=== PATIENT | male | born 1950 | race Caucasian/White ===

== ENCOUNTER 2016-05-31 04:19 | Emergency (ER) | payer OTHER, MEDICAID ==
[2016-05-31 04:27] VITALS: BP 126/77; PULSE 71; RESP 16; TEMP 97.5; O2SAT 99
[2016-05-31] MEDS ORDERED: TDAP ADULT 0.5 ML INJ (BOOSTRIX) IM ONE (04:47)
[2016-05-31] MEDS ORDERED: IBUPROFEN 600 MG TAB PO ONE (05:11)
[2016-05-31] MEDS ORDERED: ACETAMINOPHEN 500 MG TAB PO ONE (05:11)
--- NOTE | 2016-05-31 05:13 | EDPHY ---
H & P Stated Complaint: fall (mech?), no LOC, denies neck pain Time Seen by Provider: 05/31/16 04:35 HPI/ROS: HPI The patient presents with a fall which occurred just prior to arrival. He got up in the middle of the night to go to the bathroom in his back was hurting him , he was walking with a limping gait because of pain, he fell backwards landing on his head and sustained a laceration to his scalp. He did not lose consciousness. He was awake and alert. There was no witnessed seizure activity. He periodically has episodes of low back pain for which he takes ibuprofen. This episode feels identical. He does not have a headache, vomiting , mental status changes. He is here with his caregiver. REVIEW OF SYSTEMS Constitutional: No fever, no chills. Eyes: No discharge. ENT: No sore throat. Cardiovascular: No chest pain, no palpitations. Respiratory: No cough, no shortness of breath. Gastrointestinal: No abdominal pain, no vomiting. Genitourinary: No hematuria. Musculoskeletal: No back pain. Skin: No rashes. Neurological: No headache. PMHx: Developmental delay, seizure disorder, low back pain PHYSICAL General Appearance: Alert, no distress Eyes: Pupils equal and round no pallor or injection ENT, Mouth: Mucous membranes moist Head: 6 cm posterior scalp laceration without active bleeding Respiratory: There are no retractions, lungs are clear to auscultation Cardiovascular: Regular rate and rhythm Gastrointestinal: Abdomen is soft and non-tender, no masses, bowel sounds normal Neurological: A&O, moves all extremities Skin: Warm and dry, no rashes Musculoskeletal: Neck is supple non tender Extremities: symmetrical, full range of motion Psychiatric: Patient is oriented X 3, there is no agitation Source: Patient Exam Limitations: Physical impairment - Personal History Current Tetanus/Diphtheria Vaccine: Yes Current Tetanus Diphtheria and Acellular Pertussis (TDAP): Yes Tetanus Vaccine Date: 10/22/10 - Medical/Surgical History Hx Asthma: No Hx Chronic Respiratory Disease: No Hx Diabetes: No Hx Cardiac Disease: No Hx Renal Disease: No Hx Cirrhosis: No Hx Alcoholism: No Hx HIV/AIDS: No Hx Splenectomy or Spleen Trauma: No Other PMH: developmental delay, seizure disorder, HTN, osteopenia - Social History Smoking Status: Never smoked Constitutional: Initial Vital Signs Temperature (C) 36.4 C 05/31/16 04:21 Heart Rate 71 05/31/16 04:21 Respiratory Rate 16 05/31/16 04:21 Blood Pressure 126/77 H 05/31/16 04:21 O2 Sat (%) 99 05/31/16 04:21 O2 Delivery Mode Room Air Allergies/Adverse Reactions: venom-honey bee [bee venom (honey bee)] Allergy (Intermediate, Verified 18:40) Home Medications: Medication Instructions Recorded CHOLECALCIFEROL [Vitamin D] 400 unit PO DAILY 03/21/11 Divalproex ER [Depakote ER] 250 mg PO DAILY 03/21/11 Divalproex [Depakote] 500 mg PO BID 03/21/11 Docusate Sodium [Colace] 200 mg PO BID 03/21/11 Levothyroxine [Synthroid] 75 mcg PO DAILY@1000 03/21/11 Lisinopril 20 mg PO DAILY 03/21/11 Calcium Carbonate/Vitamin D3 1 each PO BID 04/05/12 [Os-Mumtaz 500+D Caplet] Psyllium Seed [Metamucil] 3 tsp PO DAILY 04/05/12 Vitamin B Complex [Vitamin B 1 each PO DAILY 04/05/12 Complex (OTC)] Medical Decision Making Procedures: LACERATION REPAIR Procedure: Laceration repair. Verbal consent was obtained from the patient. The linear 6 cm laceration on the posterior occipital scalp was anesthetized using lidocaine with epinephrine. The wound was scrubbed, draped and explored to its base with a gloved finger. There were no deep structures involved. . The wound was repaired with naima. The wound repair was simple. The procedure was performed by myself. Differential Diagnosis: This is a 65-year-old man with developmental delay and low back pain who presents with a fall which occurred tonight. He was having an episode of lower back pain and was guarding his lower back and slipped and fell it seems. He did not lose consciousness. He did not have any seizure-like activity. He now feels well. His last tetanus shot was in 2010. In the emergency room, patient was given a local injection of lidocaine with epinephrine. His wound was irrigated and then closed with naima. We discussed wound care. He will be discharged with his caregiver. - Data Points Medications Given: Discontinued Medications Acetaminophen (Tylenol) 1,000 mg PO EDNOW ONE Stop: 05/31/16 05:12 Last Admin: 05/31/16 05:17 Dose: 1,000 mg Diphtheria/Tetanus/Acell Pertussis (Boostrix) 0.5 ml IM .ONCE ONE Stop: 05/31/16 04:48 Last Admin: 05/31/16 05:17 Dose: Not Given Ibuprofen (Motrin) 600 mg PO EDNOW ONE Stop: 05/31/16 05:12 Last Admin: 05/31/16 05:17 Dose: 600 mg Departure - Departure Disposition: Home, Routine, Self-Care Clinical Impression: Scalp laceration Qualifiers: Encounter type: initial encounter Qualified Code(s): S01.01XA - Laceration without foreign body of scalp, initial encounter Fall Qualifiers: Encounter type: initial encounter Qualified Code(s): W19.XXXA - Unspecified fall, initial encounter Condition: Good Instructions: Staple Care (ED) Additional Instructions: Your naima can be removed in 10 days. You can return to the emergency room for this or your primary care doctor can take them out. For your back pain, you can take ibuprofen 600 mg with acetaminophen 1 g every 6 hours as needed for pain. Please return to the emergency room if your worse in any way. Referrals: Teresa Quiroz MD [Primary Care Provider] - As per Instructions
== END 2016-05-31 05:20 | disposition home or self-care (01) ==
PROC: 0HQ0XZZ Repair Scalp Skin, External Approach (ICD-10-PCS; principal; 2016-05-31)
DX: S01.01XA Laceration without foreign body of scalp, initial encounter (principal); I10 Essential (primary) hypertension; W18.39XA Other fall on same level, initial encounter; Y93.01 Activity, walking, marching and hiking

== ENCOUNTER 2016-06-11 19:21 | Inpatient (IN) | payer OTHER, MEDICAID ==
[2016-06-11] MEDS ORDERED: NS 1,000 ML IV ONE (19:40)
[2016-06-11] MEDS ORDERED: ACETAMINOPHEN 325 MG TAB PO ONE (19:43)
--- NOTE | 2016-06-11 19:44 | EDPHY ---
H & P Time Seen by Provider: 06/11/16 19:32 HPI/ROS: CHIEF COMPLAINT: Fever, malaise Limitations: Patient nonverbal and the patient's caregiver is not available. History is via the paramedics. HISTORY OF PRESENT ILLNESS: 65-year-old male with a history of developmental delay presents with fever and malaise. Unclear onset of symptoms. He has had a cough, URI symptoms and fever. He is not as interactive as normal, though I do not know his baseline status. He has a 24 hour a day caregiver. REVIEW OF SYSTEMS: Unable to determine Past Medical/Surgical History: Developmental delay Seizure disorder Low back pain Social History: Lives in own home Smoking Status: Never smoked Physical Exam: General Appearance: Alert, nonverbal, follows commands Eyes: Pupils equal and round, no conjunctival pallor or injection ENT, Mouth: Mucous membranes moist Neck: Normal inspection Respiratory: Lungs are clear to auscultation Cardiovascular: Regular rate and rhythm Gastrointestinal: Abdomen is soft, no apparent tenderness Neurological: Alert, follows commands, nonfocal exam Skin: Warm and dry, no rash Extremities: no pedal edema Psychiatric: Unable to determine Constitutional: Initial Vital Signs Temperature (C) 37.5 C 06/11/16 19:34 Heart Rate 98 06/11/16 19:34 Respiratory Rate 14 06/11/16 19:34 Blood Pressure 118/72 06/11/16 19:34 O2 Sat (%) 92 06/11/16 19:34 O2 Delivery Mode Room Air O2 (L/minute) 1.5 Allergies/Adverse Reactions: venom-honey bee [bee venom (honey bee)] Allergy (Intermediate, Verified 18:40) Penicillins Allergy (Verified 06/11/16 19:52) Home Medications: Medication Instructions Recorded Alendronate Sodium [Fosamax 70 MG 70 mg PO Q7D 06/11/16 (*)] Divalproex ER [Depakote ER 250 MG 250 mg PO DAILY 06/11/16 (*)] Divalproex [Depakote] 500 mg PO BID 06/11/16 Docusate Sodium [Colace 100 MG (*)] 200 mg PO BID 06/11/16 Herbals/Supplements -Info Only 1 ea PO DAILY 06/11/16 Levothyroxine [Synthroid 75 mcg 75 mcg PO DAILY 04/21/17 (*)] Lisinopril [Zestril 20 mg (*)] 20 mg PO DAILY 06/11/16 Psyllium Husk [Metamucil] 1 tbs PO DAILY 06/11/16 Vitamin B Complex [B Complex] 1 each PO DAILY 06/11/16 levOFLOXACIN [levAQUIN (*)] 750 mg PO DAILY AT 10AM #2 tab 06/12/16 Medical Decision Making - Diagnostics Imaging Results: Imaging Impressions Head CT 06/12/16 08:00 Impression: Diffuse atrophy with no definite acute intracranial hemorrhage identified on this study that is somewhat compromised by patient motion artifact. ED Course/Re-evaluation: This patient presents with fever and URI symptoms. He does not meet SIRS criteria. However the lactate is elevated at 2.9. IV normal saline 1 L given. A repeat lactate was ordered and is 2.4. Chest x-ray reveals a left lower lobe infiltrate. Blood cultures were drawn and Levaquin 750 mg IV given. Seems more interactive after the IV fluids were given. However he is still nonverbal and his caregiver is still not available. At this point, I will admit him for observation for pneumonia. The hospitalist service was consulted for admission. Differential Diagnosis: Differential diagnosis includes pyelonephritis, cholecystitis, influenza, cellulitis, pneumonia, abscess, meningitis. - Data Points Laboratory Results: Laboratory Results 06/12/16 04:36 06/12/16 04:36 Medications Given: Discontinued Medications Acetaminophen (Tylenol) 650 mg PO EDNOW ONE Stop: 06/11/16 19:44 Last Admin: 06/11/16 20:00 Dose: 650 mg Sodium Chloride (Ns) 1,000 mls @ 0 mls/hr IV ONCE ONE PRN Reason: Wide Open Stop: 06/11/16 19:41 Last Admin: 06/11/16 19:50 Dose: 1,000 mls Levofloxacin/Dextrose (Levaquin 750 Mg (Premix)) 150 mls @ 100 mls/hr IV EDNOW ONE PRN Reason: Protocol Stop: 06/11/16 22:06 Last Admin: 06/11/16 20:46 Dose: 150 mls Sodium Chloride (Ns) 1,000 mls @ 100 mls/hr IV CONT EZEKIEL Stop: 12/08/16 21:44 Last Admin: 06/11/16 22:33 Dose: 1,000 mls Oxycodone HCl (Oxycodone Ir) 5 - 10 mg PO Q3HRS PRN PRN Reason: Pain, Severe Able to Take PO Stop: 06/21/16 21:33 Last Admin: 06/11/16 22:32 Dose: 5 mg Departure - Departure Disposition: [facility] In[facility] Acute Clinical Impression: Pneumonia Qualifiers: Pneumonia type: due to unspecified organism Laterality: left Lung location: lower lobe of lung Qualified Code(s): J18.1 - Lobar pneumonia, unspecified organism Condition: Good
[2016-06-11 19:49] LABS: % IMMATURE GRANULYOCYTES 0.4 % (0.0-1.1); ABSOLUTE IMMATURE GRANULOCYTES 0.04 10^3/uL (0.00-0.10); ADD DIFF? NO; ADD MORPH? NO; ADD SCAN? NO; ATYPICAL LYMPHOCYTE FLAG 0 (0-99); FRAGMENT RBC FLAG 0 (0-99); HEMATOCRIT 43.8 % (40.0-51.0); HEMOGLOBIN 14.5 g/dL (13.7-17.5); LEFT SHIFT FLG 10 (0-99); LIPEMIA HEMOLYSIS FLAG 80 (0-99); MEAN CELL HEMOGLOBIN 33.3 pg (27.9-34.1); MEAN CELL HEMOGLOBIN CONCENTR. 33.1 g/dL (32.4-36.7); MEAN CELL VOLUME 100.5 fL (81.5-99.8); MEAN PLATELET VOLUME 10.4 fL (8.7-11.7); PLATELET CLUMPS FLAG 0 (0-99); PLATELET COUNT 194 10^3/uL (150-400); RED BLOOD CELL COUNT 4.36 10^6/uL (4.40-6.38); RED CELL DISTRIBUTION WIDTH 13.3 % (11.5-15.2)
[2016-06-11 19:57] LABS: ANION GAP 8 mEq/L (8-16); CALCIUM 9.2 mg/dL (8.5-10.4); CARBON DIOXIDE 25 mEq/l (22-31); CHLORIDE 103 mEq/L (97-110); CREATININE 0.8 mg/dL (0.7-1.3); GLOMERULAR FILTRATION RATE > 60; GLUCOSE 97 mg/dL (70-100); POTASSIUM 4.3 mEq/L (3.5-5.2); SODIUM 136 mEq/L (134-144)
[2016-06-11] MEDS ORDERED: LORazepam 0.5 MG TAB PO PRN (21:34)
[2016-06-11] MEDS ORDERED: oxyCODONE IR 5 MG TAB PO PRN (21:34)
[2016-06-11] MEDS ORDERED: ONDANSETRON 4 MG/2 ML VIAL IVP PRN (21:34)
[2016-06-11] MEDS ORDERED: ONDANSETRON DISINTEGRATING 4 MG TAB PO PRN (21:34)
[2016-06-11] MEDS ORDERED: NS 1,000 ML IV SCH (21:45)
[2016-06-11] MEDS: DIVALPROEX NA 500 MG TAB PO SCH (22:32)
--- NOTE | 2016-06-11 23:06 | GHP ---
[f rep st] HISTORY AND PHYSICAL DATE OF ADMISSION: 06/11/2016 CHIEF COMPLAINT: Fever and malaise. HISTORY: This is a 65-year-old man with history of severe developmental delay, residing at [facility], who was brought in after being noted to have fever and to be seeming more somnolent recently than usual. Patient is nonverbal at baseline, and therefore this history is limited by that and ob tained largely through ER and caregiver report. Apparently, patient is generally able to follow com mands and is somewhat interactive, though very limited verbally to words like "yes" or "no". In the last couple of days, he has been noted to be more somnolent. There was a concern that several days ago he had a fall and hit his head and that some of these changes seem to follow that injury. He w as also febrile today with some concerns for cough, as well, and was brought to the ER for further e valuation. At the time of my evaluation, patient is alert and able to answer "no" when I ask if any thing hurts but otherwise is unable to provide any history. PAST MEDICAL HISTORY: 1. Severe developmental delay. 2. Seizure disorder. 3. Detached retina. 4. Scoliosis. 5. Hypothyroidism. FAMILY HISTORY: Father has had cancer of some sort. Mother with reactive airways disease. SOCIAL HISTORY: Patient resides at [facility] where he is significantly dependent in his ADLs. He is a nonsmoker, nondrinker, nondrug user. REVIEW OF SYSTEMS: This is unobtainable secondary to patient's cognitive disorder. MEDICATIONS: 1. Psyllium. 2. Depakote. 3. Docusate. 4. Fosamax. 5. Vitamin D. 6. Lisinopril. 7. Levothyroxine. ALLERGIES: Penicillin. PHYSICAL EXAMINATION: VITAL SIGNS: BP 109/61, heart rate 98, respiratory rate 18, O2 sats 94% on r oom air, temperature is 38.2. GENERAL APPEARANCE: Patient is awake and alert. He is in no acute d istress. EYES: Anicteric. HENT: Somewhat dry mucous membranes. Oropharynx is clear. CARDIOVASC ULAR: RRR, no MRG. PULMONARY: Normal work of breathing. Lungs are clear. There are left basilar rhonchi. ABDOMEN: Soft, nontender, nondistended. EXTREMITIES: No clubbing, cyanosis, or edema. SKIN: Warm, dry, well perfused. NEURO/PSYCH: Patient is alert. He follows commands and is able to answer questions at times but will only say "no" or "yes." He is moving all 4 extremities. CLINICAL DATA: Labs reviewed, significant for white blood cell count 9, lactic acid initially 2.9 a nd then 2.4. Chemistry remarkable only for a BUN of 27. Chest x-ray, personally reviewed and inter preted, shows evidence of left lower lobe pneumonia. ASSESSMENT AND PLAN: This is a 65-year-old man with a history of severe developmental delay, who pr esents with fever and malaise in the setting of left lower lobe pneumonia. 1. Pneumonia. Difficult to assess patient's symptoms, but it does sound as if he has had some coug h, as well as fever. Chest x-ray concerning for a new left lower lobe infiltrate. He has been star ronnie on Levaquin. Blood cultures have been sent and are pending. He is nontoxic appearing. He does not currently meet SIRS criteria. 2. Acute on chronic encephalopathy. It sounds as if patient has been more somnolent, less interact zev than is his usual baseline. A little bit difficult to assess given his severe developmental del ay. This in the setting of acute infectious process as above. Will monitor and look to patient's c aregiver for further information regarding his usual baseline. 3. History of developmental delay. Again, he is residing at [facility]. Seems to be slightly off his baseline as above. 4. History of seizure disorder. Will continue his Depakote. 5. History of hypothyroidism. Will continue his levothyroxine. 6. Disposition. Observation status. Suspect he will need less than 48-hour stay for evaluation an d management of above. Patient is new to my care. Old records reviewed and summarized as per HPI and past medical history. Care plan reviewed with ER physician, including plans for antibiotic therapy. /[id number]/MODL
[2016-06-11 23:46] LABS: COLOR YELLOW; LEUKOCYTE ESTERASE,URINE NEGATIVE (NEGATIVE); NITRITE,URINE NEGATIVE (NEGATIVE)
[2016-06-12 05:36] LABS: % IMMATURE GRANULYOCYTES 0.5 % (0.0-1.1); ABSOLUTE IMMATURE GRANULOCYTES 0.06 10^3/uL (0.00-0.10); ADD DIFF? NO; ADD MORPH? NO; ADD SCAN? NO; ATYPICAL LYMPHOCYTE FLAG 0 (0-99); FRAGMENT RBC FLAG 0 (0-99); HEMATOCRIT 39.2 % (40.0-51.0); HEMOGLOBIN 13.3 g/dL (13.7-17.5); LEFT SHIFT FLG 60 (0-99); LIPEMIA HEMOLYSIS FLAG 90 (0-99); MEAN CELL HEMOGLOBIN 33.8 pg (27.9-34.1); MEAN CELL HEMOGLOBIN CONCENTR. 33.9 g/dL (32.4-36.7); MEAN CELL VOLUME 99.7 fL (81.5-99.8); MEAN PLATELET VOLUME 10.2 fL (8.7-11.7); PLATELET CLUMPS FLAG 0 (0-99); PLATELET COUNT 154 10^3/uL (150-400); RED BLOOD CELL COUNT 3.93 10^6/uL (4.40-6.38); RED CELL DISTRIBUTION WIDTH 13.2 % (11.5-15.2)
[2016-06-12 05:58] LABS: ANION GAP 10 mEq/L (8-16); CALCIUM 8.6 mg/dL (8.5-10.4); CARBON DIOXIDE 23 mEq/l (22-31); CHLORIDE 106 mEq/L (97-110); CREATININE 0.6 mg/dL (0.7-1.3); GLOMERULAR FILTRATION RATE > 60; GLUCOSE 81 mg/dL (70-100); POTASSIUM 3.8 mEq/L (3.5-5.2); SODIUM 139 mEq/L (134-144)
[2016-06-12] MEDS: DOCUSATE SODIUM 100 MG CAP PO SCH ×2 (08:35→20:24)
[2016-06-12] MEDS: ACETAMINOPHEN 325 MG TAB PO PRN ×3 (08:36→20:25)
[2016-06-12] MEDS: LEVOTHYROXINE 75 MCG TAB PO SCH (08:36)
[2016-06-12] MEDS: DIVALPROEX ER 250 MG TAB PO SCH (08:52)
[2016-06-12] MEDS: LISINOPRIL 20 MG TAB PO SCH (08:52)
[2016-06-12] MEDS: VITAMIN B COMPLEX 1 EA CAP/TAB PO SCH (08:52)
[2016-06-12] MEDS: DIVALPROEX NA 500 MG TAB PO SCH ×2 (08:52→20:25)
[2016-06-12] MEDS: PSYLLIUM METAMUCIL 1 PKT PO SCH (08:53)
[2016-06-12] MEDS: ENOXAPARIN 40 MG/0.4 ML SYR SC SCH (11:31)
--- NOTE | 2016-06-12 12:29 | HOSPPROG ---
Hospitalist Progress Note Assessment/Plan: #Acute encephalopathy:multifactorial with infection and was dosed oxycodone last night. Mental status improved per his caregiver. Had recent fall, thus will check CTH. Stop narcotics. #Sepsis: due to PNA. Cont Levaquin #Leukocytosis: due to PNA. Influenza, UA negative #Developmental delayed: lives with his caregiver #Lactic acidosis: due to dehydration. Repeat today #Seizure d/o: depakote #Diet: regular #DVT ppx: ambulate #Disp: patient warrant inpt admission with low-grade fever and persistent encephalopathy. Cont IV abx, awaiting CT head Subjective: no pain. Mild cough and fever this morning Objective: Vital Signs Temp Pulse Resp BP Pulse Ox 36.6 C 86 16 94/67 L 90 L 06/12/16 12:15 06/12/16 12:15 06/12/16 12:15 06/12/16 12:15 06/12/16 12:15 Laboratory Results 06/12/16 04:36 06/12/16 04:36 06/11/16 06/12/16 06/13/16 05:59 05:59 05:59 Intake Total 1789 Output Total 400 Balance 1389 - Physical Exam Constitutional: no apparent distress Eyes: PERRL Ears, Nose, Mouth, Throat: moist mucous membranes, dry mucous membranes, other ( small scalp laceration, healing) Cardiovascular: regular rate and rhythym Respiratory: rhonchi Gastrointestinal: normoactive bowel sounds, soft, non-tender abdomen Genitourinary: no bladder fullness Skin: warm Musculoskeletal: full muscle strength Neurologic: AAOx3, sensation intact bilaterally Psychiatric: interacting appropriately, other (answers simple questions. Grunts (not his baseline)) ICD10 Worksheet Patient Problems: Problems Problem Status Onset Pneumonia Acute - ICD10 Problem Qualifiers (1) Pneumonia Qualifiers: Pneumonia type: P Aspiration pneumonia type: A Laterality: L Lung location: L
[2016-06-12] MEDS: ALBUTEROL 3 ML DEYVIAL IH PRN ×2 (17:23→21:47)
[2016-06-13 05:00] LABS: HEMATOCRIT 38.5 % (40.0-51.0); MEAN CELL HEMOGLOBIN 33.6 pg (27.9-34.1); MEAN CELL HEMOGLOBIN CONCENTR. 33.8 g/dL (32.4-36.7); MEAN CELL VOLUME 99.5 fL (81.5-99.8); RED BLOOD CELL COUNT 3.87 10^6/uL (4.40-6.38); RED CELL DISTRIBUTION WIDTH 13.3 % (11.5-15.2)
[2016-06-13 05:33] LABS: ANION GAP 5 mEq/L (8-16); CALCIUM 8.1 mg/dL (8.5-10.4); CARBON DIOXIDE 23 mEq/l (22-31); CHLORIDE 106 mEq/L (97-110); CREATININE 0.6 mg/dL (0.7-1.3); GLOMERULAR FILTRATION RATE > 60; GLUCOSE 83 mg/dL (70-100); POTASSIUM 3.9 mEq/L (3.5-5.2); SODIUM 134 mEq/L (134-144)
[2016-06-13 08:42] VITALS: BP 116/69; PULSE 75; TEMP 97.6; O2SAT 92
[2016-06-13 08:43] VITALS: RESP 20
[2016-06-13] MEDS: DIVALPROEX ER 250 MG TAB PO SCH (08:53)
[2016-06-13] MEDS: DIVALPROEX NA 500 MG TAB PO SCH (08:53)
[2016-06-13] MEDS: DOCUSATE SODIUM 100 MG CAP PO SCH (08:54)
[2016-06-13] MEDS: LEVOTHYROXINE 75 MCG TAB PO SCH (08:55)
[2016-06-13] MEDS: VITAMIN B COMPLEX 1 EA CAP/TAB PO SCH (08:55)
[2016-06-13] MEDS: PSYLLIUM METAMUCIL 1 PKT PO SCH (08:56)
[2016-06-13] MEDS: ENOXAPARIN 40 MG/0.4 ML SYR SC SCH (08:56)
[2016-06-13] MEDS: LISINOPRIL 20 MG TAB PO SCH (08:59)
--- NOTE | 2016-06-13 09:19 | HOSPPROG ---
Hospitalist Progress Note Assessment/Plan: #Acute encephalopathy:multifactorial with infection and was dosed oxycodone at admission. CTH negative. #Sepsis: due to PNA. Cont Levaquin #Leukocytosis: resolved. Due to PNA. Influenza, UA negative. Blood cxs NGTD #Developmental delayed: lives with his caregiver #Lactic acidosis: due to dehydration. Repeat today #Seizure d/o: depakote #Diet: regular #DVT ppx: ambulate #Disp: DC today Subjective: afebrile overnight. Nonproductive cough Objective: Vital Signs Temp Pulse Resp BP Pulse Ox 36.4 C 75 20 116/69 92 06/13/16 08:39 06/13/16 08:39 06/13/16 08:39 06/13/16 08:39 06/13/16 08:39 Laboratory Results 06/13/16 04:45 06/13/16 04:45 06/12/16 06/13/16 06/14/16 05:59 05:59 05:59 Intake Total 2300 Output Total 1850 Balance 450 - Physical Exam Constitutional: no apparent distress Eyes: PERRL Ears, Nose, Mouth, Throat: moist mucous membranes Cardiovascular: regular rate and rhythym Respiratory: no respiratory distress, other (difficult to assess as patient not taking in deep breaths) Gastrointestinal: normoactive bowel sounds Genitourinary: no bladder fullness Skin: warm Musculoskeletal: full muscle strength Neurologic: AAOx3, CN II-XII Intact Psychiatric: other (answers simple questions. Less somnolent today) ICD10 Worksheet Patient Problems: Problems Problem Status Onset Pneumonia Acute - ICD10 Problem Qualifiers (1) Pneumonia Qualifiers: Pneumonia type: due to unspecified organism Aspiration pneumonia type: A Laterality: left Lung location: lower lobe of lung Qualified Code(s): J18.1 - Lobar pneumonia, unspecified organism
[2016-06-13] MEDS ORDERED: IBUPROFEN 600 MG TAB PO ONE (12:09)
--- NOTE | 2016-06-13 13:25 | GDS ---
[f rep st] DISCHARGE SUMMARY DISCHARGE DIAGNOSES: 1. Acute metabolic/toxic encephalopathy. 2. Sepsis. 3. Community-acquired pneumonia. 4. Leukocytosis. 5. Developmental delay. 6. Lactic acidosis. 7. Seizure disorder. 8. Scoliosis. 9. Hypothyroidism. HISTORY OF PRESENT ILLNESS: Patient is a 65-year-old male with severe developmental delay, residing at [facility], who was brought in after having fever and being more somnolent than normal. His caregiver, Orthodoxy, states he is nonverbal at baseline, but can answer some questions at baseline. There was concern that he did hit his head several days ago, and the changes seemed to follow that injury. He was febrile day of admission with cough. HOSPITAL COURSE PER PROBLEM: 1. Community-acquired pneumonia: Left lower lobe infiltrate noted on x-ray. Influenza was negative. Patient was started on Levaquin and this improved symptoms. He will complete a total of 5 days antibiotics. 2. Acute metabolic encephalopathy: This is secondary to his pneumonia. He was also dosed oxycodone the evening of admission, which made him very somnolent the next day. He is opioid naive, per caregiver. This was discontinued, and patient is at his baseline today. Valproic acid was within normal limits. 3. Fever: due to pneumonia. Influenza, UA, blood cultures negative. 4. Seizure disorder: Depakote. Level was WNL. 5. Leukocytosis: resolved with antibiotics. 6. Chronic back pain: P.r.n. Tylenol and Advil. Disposition: Patient is stable for discharge to [facility] with his caregiver, Orthodoxy. New medications: Levaquin for 2 days. /[id number]/MODL MTDD
== END 2016-06-13 15:13 | disposition home or self-care (01) | DRG 871 ==
LOC: EDUNIT# → F1N 21:21 → OBSVTOIN 06-12 12:33
PROVIDERS: ADMIT Internal Medicine; ATTEND Internal Medicine
DX: A41.9 Sepsis, unspecified organism (principal); J18.9 Pneumonia, unspecified organism; G93.41 Metabolic encephalopathy; R62.50 Unspecified lack of expected normal physiological development in childhood; R56.9 Unspecified convulsions; E03.9 Hypothyroidism, unspecified
CPT/HCPCS: 96374; 97161-GP; G0378; G8978-GP-CI; G8979-GP-CI; J1650; J1956

== ENCOUNTER 2017-06-05 15:47 | Emergency (ER) | payer OTHER, MEDICAID ==
[2017-06-05] MEDS ORDERED: NS 500 ML IV ONE (16:02)
--- NOTE | 2017-06-05 16:13 | EDPHY ---
H & P Time Seen by Provider: 06/05/17 16:01 HPI/ROS: HPI Abdominal pain, back pain. 66-year-old male by private vehicle with his caregiver. This patient has a history of developmental delay. He and his caregiver report that he has had back pain, described as bilateral lower lumbar pain for the last 2 days. He denies any loss of sensation or weakness in his extremities. No bowel or bladder incontinence. No history of malignancy. He reports that about an hour prior to arrival he had an episode of diarrhea, this was followed by pain to his left lower quadrant which she describes as sharp and stabbing. No fever. The caregiver denies any bloody or melenic stool. No urinary complaints. No prior abdominal surgical history. ROS: Constitutional: No fever, no chills. No weakness. Eyes: No discharge. No changes in vision. ENT: No sore throat. No nasal congestion or rhinorrhea. Respiratory: No cough. No shortness of breath. Cardiac: No chest pain, no palpitations. Gastrointestinal: As above, no vomiting, no diarrhea. Genitourinary: No hematuria. No dysuria or increased frequency with urination. Musculoskeletal: As above. No neck pain. No myalgias or arthralgias. Skin: No rashes. Neurological: No headache. No focal weakness or altered sensation. Past medical history: Cerebral palsy, developmental delay, seizure disorder, hypertension, osteopenia, bilateral hammertoe deformity, blind in left eye, bilateral cataracts, hypothyroid. Social history: Nonsmoker. Here with his caregiver. No alcohol. Physical Exam: General Appearance: Alert, pleasant, no distress. This patient is responding to questions appropriately and in full sentences. This patient appears well- hydrated and well-nourished. Back exam: He does not have any midline thoracic, lumbar, sacral tenderness on palpation. No tenderness on palpation of the bilateral sacroiliac joints. No CVA tenderness on palpation. He has a negative same side and cross-eyed straight leg raise test. He is neurologically intact in all myotomes in dermatomes of the bilateral lower extremities. Respiratory: There are no retractions, lungs are clear to auscultation with good air movement bilaterally. Cardiovascular: Regular rate and rhythm. No murmur. Gastrointestinal: Abdomen is soft with moderate left lower quadrant tenderness on palpation, no masses, bowel sounds normal. No focal tenderness at McBurney' s point. No Heck sign. Neurological: Motor sensory function is grossly intact. Cranial nerves are normal. Gait is normal. Skin: Warm and dry, no rashes. Musculoskeletal: Neck is supple and nontender. Extremities are symmetrical. All joints range without pain or impingement. Psychiatric: No agitation. No depression. Database: EKG: Imaging: CT scan of abdomen and pelvis with IV contrast: Mild colitis, pancreatic cyst noted. No diverticulitis. Otherwise negative study. Results were discussed with staff radiologist Dr. Lisandro Matthews. Procedures: Emergency department course: Vital signs reviewed and are normal. IV was placed. He was started on IV normal saline with 500 cc to be given over the next hour. CT imaging to be obtained to evaluate for possible diverticulitis as well as aortic issue is a source of his back pain. At this time he does not require antiemetics or pain medication. 5:50 p.m., patient re-evaluated. Resting comfortably at this time. He has been afebrile. Repeat abdominal exam, mild tenderness on palpation of the left lower quadrant. Discussed results of CT scan and emergency department workup with patient and caregiver. At this time I do not feel that antibiotics are indicated. Patient and caregiver feel comfortable being discharged. Follow-up was discussed with the both of them. Return to emergency department precautions thoroughly reviewed. All of their questions were answered. The patient was discharged in good condition with his caregiver. Differential Diagnosis: The differential diagnosis on this patient includes but is not limited to colitis, diverticulitis constipation, sacroiliac strain, urinary tract infection , aortic aneurysm. This represents a partial list of diagnoses considered. These considerations are based on history, physical exam, past history, reassessment and diagnostic testing. Smoking Status: Never smoked Constitutional: Initial Vital Signs Temperature (C) 36.9 C 06/05/17 15:49 Heart Rate 90 06/05/17 15:49 Respiratory Rate 16 06/05/17 15:49 Blood Pressure 106/93 H 06/05/17 15:49 O2 Sat (%) 96 06/05/17 15:49 O2 Delivery Mode Room Air Allergies/Adverse Reactions: venom-honey bee [bee venom (honey bee)] Allergy (Intermediate, Verified 18:40) Penicillins Allergy (Verified 06/11/16 19:52) Home Medications: Medication Instructions Recorded Alendronate Sodium [Fosamax 70 MG 70 mg PO Q7D 06/11/16 (*)] Divalproex ER [Depakote ER 250 MG 250 mg PO DAILY 06/11/16 (*)] Divalproex [Depakote] 500 mg PO BID 06/11/16 Docusate Sodium [Colace 100 MG (*)] 200 mg PO BID 06/11/16 Herbals/Supplements -Info Only 1 ea PO DAILY 06/11/16 Levothyroxine [Synthroid 75 mcg 75 mcg PO DAILY 06/11/16 (*)] Lisinopril [Zestril 20 mg (*)] 20 mg PO DAILY 06/11/16 Psyllium Husk [Metamucil] 1 tbs PO DAILY 06/11/16 Vitamin B Complex [B Complex] 1 each PO DAILY 06/11/16 Medical Decision Making - Data Points Laboratory Results: Laboratory Results 06/05/17 16:15 06/05/17 16:15 06/05/17 06/05/17 06/05/17 17:32 16:24 16:15 WBC RBC Hgb POC Hgb 15.0 gm/dL gm/dL (13.7-17.5) Hct POC Hct 44 % % (40-51) MCV MCH MCHC RDW Plt Count MPV Neut % (Auto) Lymph % (Auto) [place] % (Auto) Eos % (Auto) Baso % (Auto) Nucleat RBC Rel Count Absolute Neuts (auto) Absolute Lymphs (auto) Absolute Monos (auto) Absolute Eos (auto) Absolute Basos (auto) Absolute Nucleated RBC Immature Gran % Immature Gran # POC Sodium 145 mEq/L mEq/L (135-145) Sodium 143 mEq/L mEq/L (135-145) POC Potassium 3.8 mEq/L mEq/L (3.3-5.0) Potassium 4.2 mEq/L mEq/L (3.5-5.2) POC Chloride 103 mEq/L mEq/L (97-110) Chloride 103 mEq/L mEq/L (97-110) Carbon Dioxide 29 mEq/l mEq/l (22-31) Anion Gap 11 mEq/L mEq/L (8-16) POC BUN 23 mg/dL mg/dL (7-23) BUN 22 mg/dL mg/dL (7-23) Creatinine 0.8 mg/dL mg/dL (0.7-1.3) POC Creatinine 0.9 mg/dL mg/dL (0.7-1.3) Estimated GFR > 60 Glucose 90 mg/dL mg/dL (70-100) POC Glucose 100 mg/dL mg/dL (70-100) Calcium 9.2 mg/dL mg/dL (8.5-10.4) Urine Color YELLOW Urine Appearance CLEAR Urine pH 6.0 (5.0-7.5) Ur Specific [place] 1.034 H (1.002-1.030) Urine Protein NEGATIVE (NEGATIVE) Urine Ketones TRACE H (NEGATIVE) Urine Blood NEGATIVE (NEGATIVE) Urine Nitrate NEGATIVE (NEGATIVE) Urine Bilirubin NEGATIVE (NEGATIVE) Urine Urobilinogen NEGATIVE EU EU (0.2-1.0) Ur Leukocyte Esterase NEGATIVE (NEGATIVE) Urine RBC NONE SEEN /hpf /hpf (0-3) Urine WBC 1-3 /hpf /hpf (0-3) Ur Epithelial Cells NONE SEEN /lpf /lpf (NONE-1+) Urine Mucus TRACE /lpf /lpf (NONE-1+) Urine Glucose NEGATIVE (NEGATIVE) 06/05/17 16:15 WBC 6.31 10^3/uL 10^3/uL (3.80-9.50) RBC 4.28 10^6/uL L 10^6/uL (4.40-6.38) Hgb 14.4 g/dL g/dL (13.7-17.5) POC Hgb Hct 42.4 % % (40.0-51.0) POC Hct MCV 99.1 fL fL (81.5-99.8) MCH 33.6 pg pg (27.9-34.1) MCHC 34.0 g/dL g/dL (32.4-36.7) RDW 13.5 % % (11.5-15.2) Plt Count 223 10^3/uL 10^3/uL (150-400) MPV 10.2 fL fL (8.7-11.7) Neut % (Auto) 47.5 % % (39.3-74.2) Lymph % (Auto) 36.9 % % (15.0-45.0) [place] % (Auto) 12.5 % % (4.5-13.0) Eos % (Auto) 2.4 % % (0.6-7.6) Baso % (Auto) 0.5 % % (0.3-1.7) Nucleat RBC Rel Count 0.0 % % (0.0-0.2) Absolute Neuts (auto) 3.00 10^3/uL 10^3/uL (1.70-6.50) Absolute Lymphs (auto) 2.33 10^3/uL 10^3/uL (1.00-3.00) Absolute Monos (auto) 0.79 10^3/uL 10^3/uL (0.30-0.80) Absolute Eos (auto) 0.15 10^3/uL 10^3/uL (0.03-0.40) Absolute Basos (auto) 0.03 10^3/uL 10^3/uL (0.02-0.10) Absolute Nucleated RBC 0.00 10^3/uL 10^3/uL (0-0.01) Immature Gran % 0.2 % % (0.0-1.1) Immature Gran # 0.01 10^3/uL 10^3/uL (0.00-0.10) POC Sodium Sodium POC Potassium Potassium POC Chloride Chloride Carbon Dioxide Anion Gap POC BUN BUN Creatinine POC Creatinine Estimated GFR Glucose POC Glucose Calcium Urine Color Urine Appearance Urine pH Ur Specific [place] Urine Protein Urine Ketones Urine Blood Urine Nitrate Urine Bilirubin Urine Urobilinogen Ur Leukocyte Esterase Urine RBC Urine WBC Ur Epithelial Cells Urine Mucus Urine Glucose Medications Given: Discontinued Medications Sodium Chloride (Ns) 500 mls @ 0 mls/hr IV EDNOW ONE; Wide Open PRN Reason: Protocol Stop: 06/05/17 16:03 Last Admin: 06/05/17 16:15 Dose: 500 mls Point of Care Test Results: 06/05/17 16:24 POC Sodium 145 POC Potassium 3.8 POC Chloride 103 POC BUN 23 POC Creatinine 0.9 POC Glucose 100 Departure - Departure Disposition: Home, Routine, Self-Care Clinical Impression: Lower abdominal pain, Lower back pain, Colitis Condition: Good Instructions: Colitis (ED) Additional Instructions: Read and follow provided instructions. Follow-up with your primary care physician, Dr. Teresa Quiroz, in 1-2 days for re -evaluation. Ibuprofen, 600 mg can be taken with meals every 8 hr for the next 2-3 days as needed for pain. Small pancreatic cyst noted on CT should have repeat imaging on follow-up in 2 years. Return to the emergency department for worsening pain, blood in your stool, fever, vomiting or other serious concerns. Referrals: Teresa Quiroz MD [Primary Care Provider] - As per Instructions
[2017-06-05 16:21] LABS: PLATELET COUNT 223 10^3/uL (150-400)
[2017-06-05] MEDS ORDERED: IOPAMIDOL (ISOVUE-300) 100 ML BTL ONE (16:52)
[2017-06-05 18:02] VITALS: BP 105/61
== END 2017-06-05 18:23 | disposition home or self-care (01) ==
DX: M54.5 Low back pain (principal); K52.9 Noninfective gastroenteritis and colitis, unspecified; E86.9 Volume depletion, unspecified; I10 Essential (primary) hypertension
CPT/HCPCS: 74177; 99285; Q9967; 82947-QW

== ENCOUNTER → 2017-11-09 | Outpatient (CLI) | payer OTHER, MEDICAID | LOC: BHFA 16:15 | PROVIDERS: ATTEND Internal Medicine Cardiovascular Disease | DX: R60.9 Edema, unspecified (principal); I10 Essential (primary) hypertension ==

== ENCOUNTER 2017-11-24 13:43 | Emergency (ER) | payer OTHER, MEDICAID ==
[2017-11-24] MEDS ORDERED: LET GEL TOPICAL 1 EA SYR TP ONE ×2 (15:10)
--- NOTE | 2017-11-24 15:11 | EDPHY ---
H & P Time Seen by Provider: 11/24/17 15:00 HPI/ROS: CHIEF COMPLAINT: Head injury HISTORY OF PRESENT ILLNESS: 31 today fell and his walker was caught on a bump, hit the back of his head. No loss of consciousness, no change of behavior , no vomiting, no seizure. Bleeding from a wound on the back of his scalp. REVIEW OF SYSTEMS: Eye: no change in vision ENT: no sore throat Cardiac: no chest pain or syncope Pulmonary: no cough or SOB Abdomen: no vomiting, diarrhea, abdominal pain Musculoskeletal: no back pain Skin: Occipital scalp laceration Neuro: no headache Constitutional: no fever : no urinary symptoms A comprehensive 10 point review of systems is otherwise negative aside from elements mentioned in the history of present illness. PAST MEDICAL HISTORY: Includes cerebral palsy with developmental delay, seizure disorder, hypertension. Blind in his left eye. Hypothyroid. Not on anticoagulants. Social history: Here with caregiver, tetanus up-to-date General Appearance: Alert and cooperative. Mental status at baseline per caregiver. Eyes: No scleral icterus. Pupils equal and reactive. ENT, Mouth: Normal mucous membranes. Respiratory: Normal respiratory effort, breath sounds equal, lungs are clear to auscultation. Cardiovascular: Regular rate and rhythm. Gastrointestinal: Abdomen is soft and non tender. Neurological: Alert, face symmetric, normal motor and sensory in extremities. Skin: 1 cm occipital scalp laceration. Musculoskeletal: No midline spinal or extremity tenderness. No clavicular tenderness. Pelvis stable. Chest is nontender. Psychiatric: Not agitated. Emergency Department course/MDM: Procedure: Laceration repair. Verbal consent was obtained from the patient. The 1 cm laceration on the back of the scalp was anesthetized using 0.5% bupivacaine with epinephrine. The wound was irrigated with standard emergency department protocol, draped and explored. There were no deep structures involved. No foreign body found. The wound was repaired with 3 naima. The wound repair was simple. Excellent hemostasis was obtained. Wound care instructions were discussed and the patient was warned regarding scarring. The procedure was performed by myself. Tylenol 500mg, wound sutured, no other injuries. Does not have red flags to suggest he is at high risk for intracranial bleed or skull fracture, subdural or epidural. Cervical spine cleared clinically. Smoking Status: Never smoked Constitutional: Initial Vital Signs Temperature (C) 36.7 C 11/24/17 13:47 Heart Rate 82 11/24/17 13:47 Respiratory Rate 16 11/24/17 13:47 Blood Pressure 138/84 H 11/24/17 13:47 O2 Sat (%) 96 11/24/17 13:47 O2 Delivery Mode Room Air Allergies/Adverse Reactions: venom-honey bee [bee venom (honey bee)] Allergy (Intermediate, Verified 13:47) Penicillins Allergy (Verified 11/24/17 13:47) Home Medications: Medication Instructions Recorded Alendronate Sodium [Fosamax 70 MG 70 mg PO Q7D 06/11/16 (*)] Divalproex ER [Depakote ER 250 MG 250 mg PO DAILY 06/11/16 (*)] Divalproex [Depakote] 500 mg PO BID 06/11/16 Docusate Sodium [Colace 100 MG (*)] 200 mg PO BID 06/11/16 Herbals/Supplements -Info Only 1 ea PO DAILY 06/11/16 Levothyroxine [Synthroid 75 mcg 75 mcg PO DAILY 06/11/16 (*)] Lisinopril [Zestril 20 mg (*)] 20 mg PO DAILY 06/11/16 Psyllium Husk [Metamucil] 1 tbs PO DAILY 06/11/16 Vitamin B Complex [B Complex] 1 each PO DAILY 06/11/16 Medical Decision Making Differential Diagnosis: Differential diagnosis considered for head injury including but not limited to concussion, skull fracture, intraparenchymal contusion, subarachnoid, subdural and epidural hematoma. - Data Points Medications Given: Discontinued Medications Acetaminophen (Tylenol) 500 mg PO EDNOW ONE Stop: 11/24/17 16:06 Last Admin: 11/24/17 16:13 Dose: 500 mg Departure - Departure Disposition: Home, Routine, Self-Care Clinical Impression: Laceration of scalp Qualifiers: Encounter type: initial encounter Qualified Code(s): S01.01XA - Laceration without foreign body of scalp, initial encounter Condition: Good Instructions: Laceration (ED), Head Injury (ED) Additional Instructions: Wound Care Follow-Up: Removal of sutures in 10 days. Suture removal is complimentary in uncomplicated cases. Infection or abnormal findings would require reevaluation by the MD. In that case, you may be billed. Head laceration but no evidence of other injury. Referrals: Teresa Quiroz MD [Medical Doctor] - As per Instructions
[2017-11-24] MEDS ORDERED: ACETAMINOPHEN 500 MG TAB PO ONE (16:05)
[2017-11-24 16:16] VITALS: BP 131/82
== END 2017-11-24 16:19 | disposition home or self-care (01) ==
PROC: 0HQ0XZZ Repair Scalp Skin, External Approach (ICD-10-PCS; principal; 2017-11-24)
DX: S01.01XA Laceration without foreign body of scalp, initial encounter (principal); W01.0XXA Fall on same level from slipping, tripping and stumbling without subsequent striking against object, initial encounter; Y99.8 Other external cause status; E03.9 Hypothyroidism, unspecified; H54.42A3 Blindness left eye category 3, normal vision right eye; G80.9 Cerebral palsy, unspecified; G40.909 Epilepsy, unspecified, not intractable, without status epilepticus; I10 Essential (primary) hypertension